=== PATIENT | male | born 1995 | race Hispanic/Latino ===

== ENCOUNTER 2024-02-03 20:08 | Emergency (ER) | payer SELFPAY ==
--- NOTE | 2024-02-03 20:51 | EDPHYS ---
Physician Documentation [facility] Name: Jonny Copeland Age: 29 yrs Sex: Male : 1995 Arrival Date: 02/03/2024 Time: 20:08 Bed DX4 Private MD: ED Physician Dilshad Crump HPI: 02/02 21:02 This 29 yrs old Male presents to ER via Ambulatory with complaints of Ear Pain.sb4 21:02 The patient presents with pain, that is acute, swelling. The complaints affect the sb4 right ear. Onset: The symptoms/episode began/occurred 2 day(s) ago. Modifying factors: The symptoms are alleviated by nothing, the symptoms are aggravated by nothing. Associated signs and symptoms: The patient has no apparent associated signs or symptoms. The patient has not experienced similar symptoms in the past. The patient has not recently seen a physician. Historical: - Allergies: 20:37 No Known Allergies; tl4 - Home Meds: 20:37 None [Active]; tl4 - PMHx: 20:37 None; tl4 - PSHx: 20:37 None; tl4 - Immunization history:: Adult Immunizations unknown. - Infectious Disease History:: Denies. - Social history:: Smoking status: Patient denies any tobacco usage or history of. ROS: 21:02 Constitutional: Negative for fever, chills, and weight loss, sb4 21:02 ENT: Positive for ear pain, 21:02 All other systems are negative, Exam: 21:02 Constitutional: This is a well developed, well nourished patient who is awake, alert, sb4 and in no acute distress. Head/Face: Normocephalic, atraumatic. Eyes: Extra-ocular motions intact. Periorbital areas with no swelling, redness, or edema. Skin: Warm, dry with normal turgor. Normal color with no rashes, no lesions, and no evidence of cellulitis. 21:02 ENT: Ear canal(s): erythema, that is moderate, of the right canal, swelling, that is moderate, of the right canal, TM's: erythema, that is moderate, on the right, Examination of the other ear shows no obvious abnormality, Vital Signs: 20:35 BP 120 / 80; Pulse 76; Resp 16; Temp 99.8(O); Pulse Ox 100% ; Weight 77.11 kg; Height 6 tl4 ft. 0 in. ; Pain 6/10; 21:11 BP 116 / 72; Pulse 70; Resp 18; Temp 98(TE); Pulse Ox 100% on R/A; tl4 20:35 Body Mass Index 23.06 (77.11 kg, 182.88 cm) tl4 20:35 Pain Scale: Adult tl4 MDM: 20:41 Patient medically screened. sb4 21:02 Data reviewed: vital signs, nurses notes, and as a result, I will discharge patient. sb4 Counseling: I had a detailed discussion with the patient and/or guardian regarding the historical points, exam findings, and any diagnostic results supporting the discharge/admit diagnosis, to return to the emergency department if symptoms worsen or persist or if there are any questions or concerns that arise at home. Administered Medications: 21:10 Drug: Amoxicillin-Clavulanate PO 875 mg PO once Route: PO; tl4 21:12 Follow up: Response: No adverse reaction; Medication administered at discharge. tl4 21:10 Not Given (Patient Refused): hydrocodone-acetaminophen5 mg-325 mg 1 tabs PO once tl4 21:11 Drug: Eytuyuva-Jyxacwmuo-AN Otic Drops 4 drops Otic once Route: Otic; Site: right ear; tl4 21:12 Follow up: Response: No adverse reaction; Medication administered at discharge. tl4 Disposition: 02/03 03:37 Co-signature as Attending Physician, Dilshad Crump MD I agree with the assessment sp4 and plan of care. I reviewed the patient's care provided by the Advanced Practice Provider and agree with the diagnosis and treatment plan. Disposition Summary: 02/03/24 20:51 Discharge Ordered Notes: Instill 4 drops into right ear 3 times a day for 7 days. Location: Home sb4 Problem: new sb4 Symptoms: have improved sb4 Condition: Stable sb4 Diagnosis - Other otitis externa, right ear sb4 Followup: sb4 - With: Porsche Garcia MD - When: As needed - Reason: Recheck today's complaints, Re-evaluation by your physician Discharge Instructions: - Discharge Summary Sheet sb4 - Otitis Externa, Jzou-ij-Blnr sb4 - Ear Drops, Adult, Fzzf-on-Eshr sb4 Forms: - Antibiotic Education sb4 - Patient Portal Instructions sb4 - Leadership Thank You Letter sb4 Prescriptions: - Augmentin 875-125 mg Oral Tablet - take 1 tablet ORAL route every 12 hours for 10 days; 20 tablet; Refills: 0, sb4 Product Selection Permitted Signatures: Kavitha Flores PA-C PA-C sb4 Dilshad Crump MD MD sp4 Chicho Massey RN RN tl4
--- NOTE | 2024-02-03 20:51 | ER ---
Nurse's Notes [facility] Name: Jonny Copeland Age: 29 yrs Sex: Male : 1995 Arrival Date: 02/03/2024 Time: 20:08 Bed DX4 Private MD: Diagnosis: Other otitis externa, right ear Presentation: 02/02 20:35 Chief complaint: Patient states: Pt c/o right ear pain that radiates into his right jaw tl4 and neck since Saturday. Pt states hearing is decreased. Coronavirus screen: At this time, the client does not indicate any symptoms associated with coronavirus-19. Ebola Screen: No symptoms or risks identified at this time. Initial Sepsis Screen: Does the patient meet any 2 criteria? No. Patient's initial sepsis screen is negative. Does the patient have a suspected source of infection? No. Patient's initial sepsis screen is negative. Risk Assessment: Do you want to hurt yourself or someone else? Patient reports no desire to harm self or others. Onset of symptoms was February 01, 2024. 20:35 Method Of Arrival: Ambulatory tl4 20:35 Acuity: SANTINO 4 tl4 Triage Assessment: 20:38 General: Appears in no apparent distress. Behavior is calm, cooperative. Pain: tl4 Complains of pain in right ear. EENT: Reports pain in right ear. Neuro: Level of Consciousness is awake, alert, obeys commands, Oriented to person, place, time, situation, Moves all extremities. Full function Gait is steady, Speech is normal. Cardiovascular: Capillary refill < 3 seconds Patient's skin is warm and dry. Respiratory: Airway is patent Respiratory effort is even, unlabored, Respiratory pattern is regular, symmetrical, Breath sounds are clear bilaterally. GI: No signs and/or symptoms were reported involving the gastrointestinal system. : No signs and/or symptoms were reported regarding the genitourinary system. Derm: No signs and/or symptoms reported regarding the dermatologic system. Musculoskeletal: No signs and/or symptoms reported regarding the musculoskeletal system. Historical: - Allergies: 20:37 No Known Allergies; tl4 - Home Meds: 20:37 None [Active]; tl4 - PMHx: 20:37 None; tl4 - PSHx: 20:37 None; tl4 - Immunization history:: Adult Immunizations unknown. - Infectious Disease History:: Denies. - Social history:: Smoking status: Patient denies any tobacco usage or history of. Screenin:56 [facility] ED Fall Risk Assessment (Adult) History of falling in the last 3 months, tl4 including since admission No falls in past 3 months (0 pts) Confusion or Disorientation No (0 pts) Intoxicated or Sedated No (0 pts) Impaired Gait No (0 pts) Mobility Assist Device Used No (0 pt) Altered Elimination No (0 pt) Score/Fall Risk Level 0 - 2 = Low Risk Oriented to surroundings, Maintained a safe environment, Educated pt \T\ family on fall prevention, incl call for assistance when getting out of bed, Assessed \T\ reinforced patient's understanding of fall precautions. Abuse screen: Denies threats or abuse. Denies injuries from another. Nutritional screening: No deficits noted. Tuberculosis screening: No symptoms or risk factors identified. Assessment: 20:57 Reassessment: No changes from previously documented assessment. Patient and/or family tl4 updated on plan of care and expected duration. Pain level reassessed. Patient is alert, oriented x 3, equal unlabored respirations, skin warm/dry/pink. Vital Signs: 20:35 BP 120 / 80; Pulse 76; Resp 16; Temp 99.8(O); Pulse Ox 100% ; Weight 77.11 kg; Height 6 tl4 ft. 0 in. ; Pain 6/10; 21:11 BP 116 / 72; Pulse 70; Resp 18; Temp 98(TE); Pulse Ox 100% on R/A; tl4 20:35 Body Mass Index 23.06 (77.11 kg, 182.88 cm) tl4 20:35 Pain Scale: Adult tl4 ED Course: 20:14 Patient arrived in ED. ra3 20:16 Kavitha Flores PA-C is [facility]. sb4 20:19 Dilshad Crump MD is Attending Physician. sb4 20:37 Triage completed. tl4 20:39 Arm band placed on right wrist. tl4 20:50 Porsche Garcia MD is Referral Physician. sb4 20:56 Patient has correct armband on for positive identification. Provided Education on: ED tl4 process. 20:57 No provider procedures requiring assistance completed. Patient did not have IV access tl4 during this emergency room visit. Administered Medications: 21:10 Drug: Amoxicillin-Clavulanate PO 875 mg PO once Route: PO; tl4 21:12 Follow up: Response: No adverse reaction; Medication administered at discharge. tl4 21:10 Not Given (Patient Refused): hydrocodone-acetaminophen5 mg-325 mg 1 tabs PO once tl4 21:11 Drug: Lvlbqqav-Xxgmvdumx-AZ Otic Drops 4 drops Otic once Route: Otic; Site: right ear; tl4 21:12 Follow up: Response: No adverse reaction; Medication administered at discharge. tl4 Medication: 20:57 VIS not applicable for this client. tl4 Outcome: 20:51 Discharge ordered by MD. sb4 21:11 Discharged to home ambulatory, with family, tl4 21:11 Condition: stable 21:11 Discharge instructions given to patient, family, Instructed on discharge instructions, follow up and referral plans. medication usage, Demonstrated understanding of instructions, follow-up care, medications, Prescriptions given X 1, 21:12 Patient left the ED. tl4 Signatures: Kavitha Flores PA-C PA-C sb4 Chicho Massey RN RN tl4 Rosemarie Marx 3
[2024-02-03] MEDS ORDERED: AMOX/K CLAV 875 MG TAB ONE (21:02)
[2024-02-03] MEDS ORDERED: NEOMY/POLY/HC 1% OTIC DROPS ONE (21:02)
[2024-02-03] MEDS ORDERED: HYDROCODONE/APAP 5/325 MG TAB ONE (21:02)
[2024-02-03 21:32] VITALS: BP 116/72; TEMP 98; O2SAT 100
== END 2024-02-03 21:12 | disposition home or self-care (01) ==
LOC: ER 20:08
DX: H60.8X1 Other otitis externa, right ear (principal)
CPT/HCPCS: 99283